=== PATIENT | female | born 1995 | race Caucasian/White ===

== ENCOUNTER 2021-08-15 23:26 | Emergency (ER) | payer BC ==
[~2021-08-15] VITALS: Ht 157.5 cm; Wt 50.0 kg
[2021-08-15 23:32] VITALS: TEMP 97.4
[2021-08-16 00:01] VITALS: BP 119/82; PULSE 110
== END 2021-08-16 00:07 | disposition home or self-care (01) ==
LOC: COL.ER 23:26
DX: F10.129 Alcohol abuse with intoxication, unspecified (principal)

== ENCOUNTER → 2022-04-04 | Outpatient (CLI) | payer BC | LOC: COL.RAD 09:12 | DX: N92.1 Excessive and frequent menstruation with irregular cycle (principal) ==